=== PATIENT | female | born 1965 | race Caucasian/White ===

== ENCOUNTER 2018-11-11 09:22 | Emergency (ER) | payer OTHER ==
[~2018-11-11] VITALS: Wt 78.9 kg
[2018-11-11] MEDS ORDERED: morphine 4 MG/ML VIAL IV STA ×2 (09:32→09:48)
[2018-11-11] MEDS ORDERED: SOD CHLORIDE 0.9% 1,000 ML IV STA ×2 (09:32→09:48)
[2018-11-11] MEDS ORDERED: ONDANSETRON 4 MG INJ IV STA ×2 (09:32→09:48)
[2018-11-11] MEDS ORDERED: KETOROLAC 30 MG INJ IV STA (10:53)
--- NOTE | 2018-11-11 10:59 | ERD ---
ER Documentation Chief Complaint Chief Complaint ap x 1 week,hx gallstones HPI This is a 52-year-old female with no past medical history. The patient indicates for the past 6 months she has been experiencing intermittent epigastric abdominal pain. she indicates however 1 week ago the pain worsened. The pain she describes as a sharp shooting pain most prominent in the right upper quadrant that does worsen after she consumed oral intake. She denies any lower abdominal pain. She said no frequency urgency or dysuria. She denies any back pain. She was seen by her primary care physician 3 days prior to arrival and had an outpatient ultrasound and diagnosed with cholelithiasis. She was instructed to immediately come to the emergency department for further evaluation for possible cholecystectomy. The patient denies a headache. She said no fevers or shaking or chills. She felt nauseous but has not experienced any emesis. She denies any diarrhea constipation. She does indicate that she has a history of uterine fibroids and indicates that over the past several months she has had intermittent suprapubic tenderness with no frequency urgency or dysuria no abnormal urethral discharge. However today she states her s uprapubic tenderness has improved. ROS All systems reviewed and are negative except as per history of present illness. Medications Home Meds No Active Prescriptions or Reported Meds Allergies Allergies: Coded Allergies: No Known Drug Allergy (Verified Allergy, Unknown, 10/22/07) PMhx/Soc History of Surgery: No Anesthesia Reaction: No Hx Neurological Disorder: No Hx Respiratory Disorders: No Hx Cardiac Disorders: No Hx Psychiatric Problems: No Hx Miscellaneous Medical Probl: Yes (history of Gallstones and uterine Fibroids) Hx Alcohol Use: No Hx Substance Use: No Hx Tobacco Use: No Smoking Status: Never smoker Physical Exam Vitals Vital Signs Date Temp Pulse Resp B/P (MAP) Pulse Ox O2 O2 Flow FiO2 Time Delivery Rate 11/11/18 97.5 78 18 128/75 99 09:24 (92) Physical Exam Constitutional:Well-developed. Well-nourished. HEENT:Normocephalic. Atraumatic.Pupils were equal round reactive to light. Moist mucous membranes.No tonsillar exudates. Neck: No nuchal rigidity. No lymphadenopathy. No posterior cervical spine tenderness or step-offs. Respiratory: Not using accessory muscles of respiration.Lungs were clear to auscultation bilaterally. No rhonchi. No rales. No wheezing. Cardiovascular: Regular rate regular rhythm.No murmurs. No rubs were appreciated.S1, S2 normal. Distal pulses are palpable 2+ bilaterally. GI: Abdomen was soft. Mild tenderness in the right upper quadrant with negative Sheets sign. No tenderness the right lower quadrant over McBurney's point. P soas sign negative. Obturator sign negative. Non Distended. No pulsatile abdominal masses or bruits. No rebound. No guarding. Bowel sounds were present and normal. : Pelvic exam was performed by myself and the patient denied a female nurse heel nail rasper present. Cervix was closed nonfriable no endocervical discharge. No adnexal tenderness or masses. No cervical motion tenderness. Muscle skeletal: Full range of motion of both the upper and lower extremities bilaterally.Normal muscle tone.No assymetrical calf tenderness or swelling. Skin: No petechia, no purpura. No lesions on the palms or the soles of the feet. No maculopapular rash. NEURO: Patient was alert, awake, orientated x3.No facial droop. Gait observed and normal with no ataxia.Speech had regular rate and rhythm. No focal neuro logical deficits. Result Diagram: 11/11/18 1005 11/11/18 1005 Results 24 hrs Laboratory Tests Test 11/11/18 10:05 White Blood Count 7.0 10^3/ul Red Blood Count 4.43 10^6/ul Hemoglobin 12.9 g/dl Hematocrit 38.7 % Mean Corpuscular Volume 87.4 fl Mean Corpuscular Hemoglobin 29.1 pg Mean Corpuscular Hemoglobin Concent 33.3 g/dl Red Cell Distribution Width 12.9 % Platelet Count 295 10^3/UL Mean Platelet Volume 9.0 fl Immature Granulocytes % 0.100 % Neutrophils % 57.6 % Lymphocytes % 34.9 % Monocytes % 6.1 % Eosinophils % 1.0 % Basophils % 0.3 % Nucleated Red Blood Cells % 0.0 /100WBC Immature Granulocytes # 0.010 10^3/ul Neutrophils # 4.1 10^3/ul Lymphocytes # 2.5 10^3/ul Monocytes # 0.4 10^3/ul Eosinophils # 0.1 10^3/ul Basophils # 0.0 10^3/ul Nucleated Red Blood Cells # 0.0 10^3/ul Prothrombin Time 12.1 Sec Prothrombin Time Ratio 0.9 INR International Normalized Ratio 0.89 Activated Partial Thromboplast Time 30.7 Sec Urine Color YELLOW Urine Clarity CLEAR Urine pH 5.0 Urine Specific [place] 1.018 Urine Ketones NEGATIVE mg/dL Urine Nitrite NEGATIVE mg/dL Urine Bilirubin NEGATIVE mg/dL Urine Urobilinogen NEGATIVE mg/dL Urine Leukocyte Esterase NEGATIVE Imelda/ul Urine Hemoglobin NEGATIVE mg/dL Urine Glucose NEGATIVE mg/dL Urine Total Protein NEGATIVE mg/dl Sodium Level 139 mmol/L Potassium Level 3.8 mmol/L Chloride Level 101 mmol/L Carbon Dioxide Level 27 mmol/L Anion Gap 11 Blood Urea Nitrogen 11 mg/dl Creatinine 0.60 mg/dl Est Glomerular Filtrat Rate mL/min > 60 mL/min Glucose Level 111 mg/dl Calcium Level 9.3 mg/dl Total Bilirubin 0.2 mg/dl Direct Bilirubin 0.00 mg/dl Indirect Bilirubin 0.2 mg/dl Aspartate Amino Transf (AST/SGOT) 36 IU/L Alanine Aminotransferase (ALT/SGPT) 47 IU/L Alkaline Phosphatase 118 IU/L Troponin I < 0.012 ng/ml Total Protein 7.8 g/dl Albumin 4.4 g/dl Globulin 3.40 g/dl Albumin/Globulin Ratio 1.29 Amylase Level 89 U/L Lipase 83 U/L Current Medications Medications Dose Sig/Camryn Start Time Status Last (Trade) Ordered Route PRN Stop Time Admin Dose Reason Admin Sodium 1,000 ml @ Q1H STAT 11/11/18 DC 11/11/18 Chloride 1,000 mls/hr IV 09:32 11:09 11/11/18 10:31 Morphine 4 mg ONCE STAT 11/11/18 DC 11/11/18 Sulfate IV 09:32 11:09 (morphine) 11/11/18 09:33 Ondansetron 4 mg ONCE STAT 11/11/18 DC 11/11/18 HCl (Zofran IV 09:32 11:09 Inj) 11/11/18 09:33 Sodium 1,000 ml @ Q1H STAT 11/11/18 DC Chloride 1,000 mls/hr IV 09:48 11/11/18 10:47 Morphine 4 mg ONCE STAT 11/11/18 DC Sulfate IV 09:48 (morphine) 11/11/18 09:59 Ondansetron 4 mg ONCE STAT 11/11/18 DC HCl (Zofran IV 09:48 Inj) 11/11/18 09:59 Ketorolac 30 mg ONCE STAT 11/11/18 DC Tromethamine IV 10:53 (Toradol) 11/11/18 10:55 Procedures/MDM The patient presented to the emergency department with epigastric pain. My differential diagnosis included but was not limited to abdominal aortic aneurysm, choledocholithiasis, gallstone ileus, renal colic, pyelonephritis, pancreatitis, peptic ulcer disease, atypical myocardical infarction, mesenteric ischemia, GERD, pulmonary infarction. The patient was placed on a secured entrance monitor, continuous pulse oximetry and IV access was established by nursing staff. Patient received intravenous morphine and Zofran for analgesic control. An EKG was obtained to rule out myocardial ischemia. There was no elevation of LFTs to suggest ductal obstruction, cholangitis, cholecystiitis or hepatitis. Given that the urinalysis did not show bilirubinuria, my suspicion for common duct obstruction or hepatitis was low. 12 Lead EKG tracing ordered and reviewed by myself showed: Normal sinus rhythm of 71 bpm and no arrhythmia. OK interval normal. QRS duration normal. No ST segment elevation No ST segment depression. No changes consistent with acute ischemia. The patient had ultrasound of the abdomen that was reviewed by the radiologist as well as myself. There is no evidence of cholelithiasis or choledocholithiasis. There is no evidence of obstructive uropathy. The patient had no leukocytosis no electrolyte abnormalities no evidence of urinary tract infection. I indicated to the patient there could have been a miscommunication with her previous ultrasound that indicated she had gallstones as this was not present on today's imaging. She had no peritoneal signs of the abdomen and my clinical suspicion was low for appendicitis or small bowel obstruction. Her pain is completely resolved. She also received IV Toradol. I indicated that she would benefit from an upper endoscopy and colonoscopy and this will be performed on an outpatient basis. She will follow-up with her primary care physician was given copies of all of her imaging. The patient was discharged home in fair condition. They were instructed to return to the emergency department at any time if there was any worsening of their condition. The patient stated they would follow up with their PCP in the next 24-48 hours to initiate a suitable medication regimen under the care of their PCP as well as to allow their PCP to monitor any drug reactions. The patient was discharged home with prescriptions after they gave informed consent to the new medication. They were also fully informed by myself on the adverse effects and adverse drug interactions in order to provide adequate safeguards to prevent possible adverse reactions to medications. Departure Diagnosis: Primary Impression: Epigastric pain Condition: CALEB Marsh MD Nov 11, 2018 10:59
[2018-11-11] MEDS ORDERED: FAMO40TA66 PO (11:21)
[2018-11-11 12:06] VITALS: BP 133/86; PULSE 81; RESP 16
== END 2018-11-11 12:23 | disposition home or self-care (01) ==
LOC: E/R 09:22
DX: R10.13 Epigastric pain (principal); R40.2252 Coma scale, best verbal response, oriented, at arrival to emergency department; R40.2362 Coma scale, best motor response, obeys commands, at arrival to emergency department; R40.2142 Coma scale, eyes open, spontaneous, at arrival to emergency department
CPT/HCPCS: 71045; 76705; 76830; 76856; 80053; 81003; 82150; 83690; 84484; 85025; 85610; 85730; 87086; 93005; 96374; 96375; 99285; J2270; J2405; J7030